=== PATIENT | male | born 1985 | race Caucasian/White ===

== ENCOUNTER → 2024-07-19 06:47 | Outpatient (CLI) | payer OTHER, SELFPAY ==
--- NOTE | 2024-07-19 06:49 | DI.ECHO.S_ITS ---
[facility] : : [address] : : [place] : : [id number] : : Phone: [phone] Echocardiogram Report + + :Name: GHASSAN CAVANAUGH Study Date: 07/19/2024 Height: 70 in : :Hospital ReadingLocation: Weight: 180 lb : : Gender: Male BSA: 2.0 m2 : :: 1985 Age: 39 yrs BP: 125/58 mmHg: :Reason For Study: HISTORY AND PHYSICAL, HX BAV : :Ordering Physician: JACEY, : :ROCHELLE Performed By: Simon Armijo : :Referring: Provider Eric Mclaughlin : + + Interpretation Summary Sinus bradycardia; HR is 45-59 bpm. Severely dilated LV (end diastolic diameter is 6.3 cm on personal review; indexed volume is 145 ml/m2). Normal wall thickness; normal wall motion and LV systolic function. EF is 60-65%. Bicuspid aortic valve with moderate-severe associated aortic regurgitation. No prior echo available for comparison. Procedure: A two-dimensional transthoracic echocardiogram with color flow and Doppler was performed. The study quality was technically good. There is no prior echocardiogram noted for this patient. The patient was in normal sinus rhythm during the exam. Left Ventricle: The left ventricle is severely dilated. There is normal left ventricular wall thickness. There is no ventricular septal defect visualized. The ejection fraction is estimated to be 60-65%. There are no focal wall motion abnormalities. Diastolic parameters suggest probable normal left ventricular diastolic function and normal filling pressures. Right Ventricle: The right ventricle is mildly dilated. The right ventricular systolic function is normal. Atria: The left atrial size is normal. Borderline right atrial enlargement. The interatrial septum grossly appears intact with no obvious evidence for an atrial septal defect. Mitral Valve: The mitral valve leaflets appear mildly thickened, but open well. There is mild to moderate mitral regurgitation. Aortic Valve: The aortic valve is bicuspid. There is diastolic prolapse of the aortic valve leaflets(s). There is moderate to severe aortic regurgitation. There is an eccentric jet of aortic insufficiency directed against the anterior mitral leaflet. Tricuspid Valve: The tricuspid valve leaflets are thin and pliable. There is a trace or physiologic amount of tricuspid regurgitation. Pulmonic Valve: The pulmonic valve is not well seen, but is grossly normal. There is no pulmonic valvular regurgitation. Great Vessels: The aortic root is mildly dilated. The dimensions of the ascending aorta are normal. The pulmonary artery is normal size. The IVC is of normal diameter and collapses greater than 50% with a sniff. This suggests a low right atrial pressure of 3 mm Hg. Pericardium/ Pleura There is no pericardial effusion. There is no pleural effusion. MMode/2D Measurements & Calculations LVIDd: 6.8 cm LVOT diam: 2.7 cm LVIDs: 5.0 cm Ao root diam: 4.0 cm FS: 27.1 % asc Aorta Diam: 3.6 cm EPSS: 1.4 cm IVSd: 0.74 cm LVPWd: 1.2 cm LV lorenzo. diameter/BSA (cm/m^2): 3.4 LV sys. diameter/BSA (cm/m^2): 2.5 LA A2 area: 24.0 cm2 RA long axis: 4.5 cm LA A4 area: 17.1 cm2 RA area: 15.7 cm2 LA length (vol): 5.5 cm RA vol: 46.8 ml LA vol: 63.6 ml RA : 23.4 ml/m2 LA vol index: 31.9 ml/m2 IVC diam: 1.9 cm RVD1 (basal): 4.0 cm RVD2 (mid): 3.5 cm TAPSE: 2.6 cm Doppler Measurements & Calculations Ao V2 max: 202.0 cm/sec LVOT Max Gilmar: 124.9 cm/sec Ao V2 mean: 133.8 cm/sec LV V1 max P.2 mmHg Ao max P.3 mmHg LV V1 VTI: 30.5 cm Ao mean P.0 mmHg STEPHANIE(I,D): 3.6 cm2 Ao V2 VTI: 47.4 cm STEPHANIE(V,D): 3.5 cm2 sev ratio: 0.64 STEPHANIE indexed to BSA (cm^2/m^2): 1.8 AI P1/2t: 454.3 msec AI dec slope: 313.7 cm/sec2 MV E max gilmar: 48.9 cm/sec PA V2 max: 76.9 cm/sec MV A max gilmar: 45.7 cm/sec PA V2 mean: 55.1 cm/sec MV E/A: 1.1 PA mean P.3 mmHg Med Peak E' Gilmar: 8.4 cm/sec PA pr(Accel): 31.0 mmHg E/E' med: 5.8 Lat Peak E' Gilmar: 9.9 cm/sec E/E' lat: 5.0 E/e' average: 5.4 MV dec time: 0.20 sec MR ERO: 0.14 cm2 MR PISA: 2.0 cm2 SV(LVOT): 172.3 ml MR flow rate: 72.6 cm3/sec MR PISA radius: 0.56 cm Electronically signed by: Carmen Sweeney M.D. on Reading Physician:07/20/2024 12:15 AM
== END ==
LOC: ECHO 06:49
PROVIDERS: Referring Provider Physician Assistant; Visit Provider Physician Assistant
DX: Z00.00 Encounter for general adult medical examination without abnormal findings (principal); I08.0 Rheumatic disorders of both mitral and aortic valves; I77.89 Other specified disorders of arteries and arterioles; Q23.81 Bicuspid aortic valve
CPT/HCPCS: 93306